=== PATIENT | male | born 1940 | race Caucasian/White ===

== ENCOUNTER 2019-02-12 13:47 | Inpatient (IN) | payer MEDICARE ==
[~2019-02-12] VITALS: Ht 177.8 cm; Wt 79.0 kg
[2019-02-12] MEDS ORDERED: METFORMIN500 MG PO (14:06)
[2019-02-12] MEDS ORDERED: VITAMIN D32000 UNI1 PO (14:06)
[2019-02-12] MEDS ORDERED: OMEPRAZOLE10 MG PO (14:07)
[2019-02-12] MEDS ORDERED: LISINOPRIL10 MG PO (14:07)
[2019-02-12] MEDS ORDERED: TRAMADOL HCL50 MG PO (14:07)
[2019-02-12] MEDS ORDERED: B121000 MCG (14:08)
[2019-02-12 14:22] LABS: HEMATOCRIT 38.9 % (39.0-50.0); HEMOGLOBIN 13.8 g/dl (14.0-18.0); IMMATURE GRANULOCYTES 0.3 % (0.0-5.0); MEAN CORPUSCULAR HGB 31.9 pG CALC (26.0-32.0); MEAN CORPUSCULAR HGB CONC 35.5 g/L CALC (32.0-36.0); NEUT# 4.32 thou/uL (1.82-7.42); RED BLOOD COUNT 4.32 mill/uL (4.70-6.10); RED CELL DISTRI WIDTH 11.9 % (11.5-15.5)
[2019-02-12 14:37] LABS: PROTHROMBIN TIME 10.9 SECONDS (9.0-12.5)
[2019-02-12 14:38] LABS: ALBUMIN 4.7 g/dL (3.2-5.0); ALKALINE PHOSPHATASE 53 u/l (38-126); ANION GAP 25 (6-22 (CALC)); BILIRUBIN, TOTAL 0.4 mg/dL (0.0-1.4); CARBON DIOXIDE 18 mmol/l (22-30); CHLORIDE 84 mmol/l (95-108); CREATININE 0.5 mg/dL (0.7-1.3); ETHYL ALCOHOL 32 mg/dl (0-30); GFR > 60 ML/MIN (>=60 (CALC)); GFR FOR AFR.AMER. > 60 ML/MIN (>=60 (CALC)); POTASSIUM 3.9 mmol/l (3.5-5.1); SGOT/AST 25 u/l (19-48); SODIUM 123 mmol/l (137-146); TOTAL PROTEIN 7.5 g/dL (6.3-8.2)
[2019-02-12 14:42] LABS: BUN 2 mg/dL (8-23); BUN/CREATININE RATIO 4 (12-20 (CALC))
[2019-02-12 15:08] LABS: TSH, 3RD GENERATION 1.61 uIU/mL (0.47 - 4.68)
[2019-02-12 15:46] LABS: URINE BILIRUBIN - DIPSTICK NEGATIVE (NEGATIVE); URINE BLOOD DIPSTICK MODERATE (NEGATIVE); URINE COLOR YELLOW; URINE GLUCOSE - DIPSTICK NEGATIVE (NEGATIVE); URINE KETONE TRACE mg/dL (NEGATIVE); URINE LEUK ESTERASE NEGATIVE (NEGATIVE); URINE NITRITE - DIPSTICK NEGATIVE (Negative); URINE PROTEIN - DIPSTICK NEGATIVE (NEG-TRACE); URINE SPECIFIC GRAVITY <=1.005; URINE UROBILINOGEN - DIPSTICK 0.2 E.U./dL (0.2)
[2019-02-12 16:08] LABS: URINE RBC 25-50 RBC/hpf (0-5); URINE SQUAMOUS EPITHELIAL CELL FEW EPI/hpf (0-FEW)
[2019-02-12 17:30] VITALS: BP 160/76
[2019-02-12 19:45] VITALS: BP 131/61
[2019-02-12 20:00] LABS: ANION GAP 15 (6-22 (CALC)); BUN 2 mg/dL (8-23); BUN/CREATININE RATIO 4 (12-20 (CALC)); CARBON DIOXIDE 20 mmol/l (22-30); CREATININE 0.5 mg/dL (0.7-1.3); GFR > 60 ML/MIN (>=60 (CALC)); GFR FOR AFR.AMER. > 60 ML/MIN (>=60 (CALC)); POTASSIUM 4.1 mmol/l (3.5-5.1); SODIUM 126 mmol/l (137-146)
[2019-02-12 20:02] LABS: CHLORIDE 95 mmol/l (95-108)
[2019-02-12 23:58] VITALS: BP 146/61
[2019-02-13 04:15] VITALS: BP 151/54
[2019-02-13 05:14] LABS: CHOLESTEROL HDL RATIO 2.2 (<4.4 (CALC)); MAGNESIUM 1.5 mg/dL (1.6-2.3)
[2019-02-13 05:50] LABS: ANION GAP 16 (6-22 (CALC)); BUN 2 mg/dL (8-23); BUN/CREATININE RATIO 5 (12-20 (CALC)); CARBON DIOXIDE 24 mmol/l (22-30); CHLORIDE 94 mmol/l (95-108); CREATININE 0.5 mg/dL (0.7-1.3); GFR > 60 ML/MIN (>=60 (CALC)); GFR FOR AFR.AMER. > 60 ML/MIN (>=60 (CALC)); POTASSIUM 4.1 mmol/l (3.5-5.1); SODIUM 130 mmol/l (137-146)
[2019-02-13 08:00] VITALS: BP 173/86
[2019-02-13 11:16] VITALS: BP 162/57
[2019-02-13 16:42] VITALS: BP 156/73
[2019-02-13 19:47] VITALS: BP 130/56
[2019-02-14 01:00] VITALS: BP 145/73
[2019-02-14 05:27] LABS: HEMATOCRIT 39.7 % (39.0-50.0); HEMOGLOBIN 13.8 g/dl (14.0-18.0); MEAN CELL VOLUME 91.7 fL CALC (80.0-100.0); MEAN CORPUSCULAR HGB 31.9 pG CALC (26.0-32.0); MEAN CORPUSCULAR HGB CONC 34.8 g/L CALC (32.0-36.0); RED BLOOD COUNT 4.33 mill/uL (4.70-6.10); RED CELL DISTRI WIDTH 11.9 % (11.5-15.5)
[2019-02-14 05:59] LABS: ALBUMIN 4.2 g/dL (3.2-5.0); BUN 5 mg/dL (8-23); CARBON DIOXIDE 25 mmol/l (22-30); CHLORIDE 91 mmol/l (95-108); CREATININE 0.5 mg/dL (0.7-1.3); GFR > 60 ML/MIN (>=60 (CALC)); GFR FOR AFR.AMER. > 60 ML/MIN (>=60 (CALC)); SODIUM 129 mmol/l (137-146)
[2019-02-14 08:00] VITALS: BP 123/40
[2019-02-14 11:12] VITALS: BP 148/75
[2019-02-14 15:21] VITALS: BP 148/69
[2019-02-14 19:20] VITALS: BP 125/52
[2019-02-14 23:57] VITALS: BP 129/85
[2019-02-15 04:12] VITALS: BP 150/73
[2019-02-15 04:58] LABS: ANION GAP 18 (6-22 (CALC)); BUN 6 mg/dL (8-23); BUN/CREATININE RATIO 12 (12-20 (CALC)); CARBON DIOXIDE 26 mmol/l (22-30); CHLORIDE 91 mmol/l (95-108); CREATININE 0.6 mg/dL (0.7-1.3); GFR > 60 ML/MIN (>=60 (CALC)); GFR FOR AFR.AMER. > 60 ML/MIN (>=60 (CALC)); SODIUM 131 mmol/l (137-146)
[2019-02-15 08:35] VITALS: BP 146/74
[2019-02-15 11:31] VITALS: BP 122/61
[2019-02-15 16:00] VITALS: BP 113/52
[2019-02-15 20:44] VITALS: BP 127/60
[2019-02-15 23:54] VITALS: BP 137/66
[2019-02-16 05:11] LABS: HEMOGLOBIN 14.1 g/dl (14.0-18.0); MEAN CELL VOLUME 92.6 fL CALC (80.0-100.0); MEAN CORPUSCULAR HGB 31.8 pG CALC (26.0-32.0); MEAN CORPUSCULAR HGB CONC 34.4 g/L CALC (32.0-36.0); RED BLOOD COUNT 4.43 mill/uL (4.70-6.10); RED CELL DISTRI WIDTH 12.1 % (11.5-15.5)
[2019-02-16 05:21] LABS: ALBUMIN 4.5 g/dL (3.2-5.0); BUN 9 mg/dL (8-23); CARBON DIOXIDE 24 mmol/l (22-30); CHLORIDE 94 mmol/l (95-108); CREATININE 0.6 mg/dL (0.7-1.3); GFR > 60 ML/MIN (>=60 (CALC)); GFR FOR AFR.AMER. > 60 ML/MIN (>=60 (CALC)); POTASSIUM 3.7 mmol/l (3.5-5.1); SODIUM 133 mmol/l (137-146)
[2019-02-16 05:40] VITALS: BP 131/68
[2019-02-16 07:07] VITALS: BP 136/70
[2019-02-16] MEDS ORDERED: ZPAK PO (10:54)
[2019-02-16] MEDS ORDERED: TRAMADOL HCL50 MG PO (10:54)
[2019-02-16] MEDS ORDERED: PREDNISONE10 MG PO (10:54)
[2019-02-16] MEDS ORDERED: ZYRTEC10 MG PO (10:54)
[2019-02-16] MEDS ORDERED: IPRATROPIU0.5 MG/3 M IN (10:54)
[2019-02-16] MEDS ORDERED: LIBRIUM25 M1 PO (10:54)
[2019-02-16 11:03] VITALS: BP 111/66
[2019-02-16 15:46] VITALS: BP 119/59
[2019-02-16 19:25] VITALS: BP 125/62
[2019-02-17 00:27] VITALS: BP 137/68
[2019-02-17 04:06] VITALS: BP 161/76
[2019-02-17 06:12] LABS: BUN 12 mg/dL (8-23); BUN/CREATININE RATIO 19 (12-20 (CALC)); CARBON DIOXIDE 27 mmol/l (22-30); CHLORIDE 96 mmol/l (95-108); CREATININE 0.6 mg/dL (0.7-1.3); GFR > 60 ML/MIN (>=60 (CALC)); GFR FOR AFR.AMER. > 60 ML/MIN (>=60 (CALC)); SODIUM 136 mmol/l (137-146)
[2019-02-17 06:38] LABS: ANION GAP 18 (6-22 (CALC)); POTASSIUM 4.7 mmol/l (3.5-5.1)
[2019-02-17 07:45] VITALS: BP 152/77
[2019-02-17] MEDS ORDERED: FLONASE AL50 MCG/AC1 NAB (11:01)
[2019-02-17] MEDS ORDERED: COLACE100 MG PO (11:03)
[2019-02-17] MEDS ORDERED: MIRALAX3350 NF PO (11:03)
[2019-02-17 11:34] VITALS: BP 136/70
[2019-02-17 15:45] VITALS: BP 129/71
== END 2019-02-17 18:33 | DRG 641 ==
LOC: ED 13:47 → ED-I 16:07 → ED 16:34 → MS2 16:35
PROVIDERS: Emergency Medicine; Internal Medicine Nephrology; ADMIT Internal Medicine; ATTEND Internal Medicine
DX: E87.1 Hypo-osmolality and hyponatremia (principal); F10.288 Alcohol dependence with other alcohol-induced disorder; G31.2 Degeneration of nervous system due to alcohol; E87.2 Acidosis; I10 Essential (primary) hypertension; E11.9 Type 2 diabetes mellitus without complications; D64.9 Anemia, unspecified; E87.3 Alkalosis; I69.919 Unspecified symptoms and signs involving cognitive functions following unspecified cerebrovascular disease; F01.50 Vascular dementia, unspecified severity, without behavioral disturbance, psychotic disturbance, mood disturbance, and anxiety; J44.9 Chronic obstructive pulmonary disease, unspecified; J32.9 Chronic sinusitis, unspecified; K59.00 Constipation, unspecified; F17.290 Nicotine dependence, other tobacco product, uncomplicated; Y90.1 Blood alcohol level of 20-39 mg/100 ml; Z79.84 Long term (current) use of oral hypoglycemic drugs
CPT/HCPCS: J3475; Q9967